=== PATIENT | female | born 1990 | race Caucasian/White ===

== ENCOUNTER 2024-04-03 12:01 | Emergency (ER) | payer MEDICAID, SELFPAY ==
[2024-04-03 12:02] VITALS: BMI 32.0
[2024-04-03 12:09] VITALS: BP 137/94; PULSE 109; RESP 16; TEMP 36.7; O2SAT 100; BMI 31.3
--- NOTE | 2024-04-03 12:18 | XR_ITS ---
Examination: Abdomen sonogram, Limited Date and time of exam: April 03, 2024 1236 hours INDICATIONS: Worsening right upper abdominal pain beginning 2 days ago Technique: Real-time frazier scale transabdominal sonographic images of the upper abdomen obtained. Findings: Gallbladder sludge, stone with shadowing at the gallbladder neck Gallbladder wall 0.3 cm no edema Common bile duct 0.5 cm Pancreatic head 2.3 cm Liver 13.5 cm no focal liver lesions Normal hepatopedal portal venous flow Patent IVC IMPRESSION: Cholelithiasis, negative for cholecystitis
[2024-04-03 12:34] LABS: Basophils # (Auto) 0.1 Thou/mm3 (0.0-0.2); Basophils % (Auto) 0 % (0-2.5); Eosinophils # (Auto) 0.1 Thou/mm3 (0.0-0.5); Eosinophils % (Auto) 1 % (0-10); Hematocrit 35.2 % (36.0-46.0); Hemoglobin 12.1 g/dL (12.0-16.0); Immature Granulocytes % (Auto) 0 % (0-0); Immature Granulocytes Auto 0.03 Thou/mm3 (0.00-0.00); Lymphocytes % (Auto) 18 % (10-50); Mean Corpuscular HGB Conc 34.4 g/dl (31.0-37.0); Mean Corpuscular Hemoglobin 27.4 pg (25.0-35.0); Mean Corpuscular Volume 80 fL (80-100); Monocytes # (Auto) 0.4 Thou/mm3 (0.0-0.8); Monocytes % (Auto) 4 % (0-12); Neutrophils # (Auto) 8.9 Thou/mm3 (1.8-7.7); Neutrophils % (Auto) 77 % (37-80); Nucleated Red Blood Cell % 0 /100 WBC (0); Platelet Count 309 Thou/mm3 (140-440); RDW Standard Deviation 41.1 fL (36.4-46.3); Red Blood Count 4.41 Miln/mm3 (4.00-5.20); White Blood Count 11.6 Thou/mm3 (3.6-11.0)
[2024-04-03 12:43] LABS: Collection Type, Urine Clean Catch
[2024-04-03 12:56] LABS: Bilirubin,Urine Negative (Negative); Blood,Urine 1+ (Negative); Clarity,Urine Clear (Clear/Hazy); Color,Urine Lt-Yellow (Lt Yel-Yel); Culture Indicated,Urine Not Indicated; Glucose, Urine Negative (Negative); Ketones,Urine 4+ (Negative); Leukocyte Esterase,Urine Negative (Negative); Nitrite,Urine Negative (Negative); PH,Urine 6.5 (5.0-7.0); Protein,Urine Trace (Neg - Trace); RBC,Urine 3 /hpf (0-3); Specific Gravity,Urine 1.021 (1.001-1.035); Squamous Epithelial Cell,Urine 2 /hpf (0-5); Urobilinogen,Urine Negative mg/dL (0.0-1.0); WBC,Urine 1 /hpf (0-5)
[2024-04-03 12:57] LABS: Alanine Aminotransferase 18 U/L (10-49); Albumin, Serum 4.9 gm/dL (3.5-5.0); Albumin/Globulin Ratio 1.5 (1.2-2.2); Alkaline Phosphatase 99 U/L (46-116); Anion Gap 8 (7-16); Aspartate Amino Transferase 11 U/L (0-34); BUN/Creatinine Ratio 8 Ratio (12-20); Bilirubin,Total 0.9 mg/dL (0.3-1.2); Blood Urea Nitrogen 5 mg/dL (9-23); Calcium 9.4 mg/dL (8.3-10.6); Calcium (Corrected) 9.4 mg/dL (8.5-10.1); Carbon Dioxide 22.6 mMol/L (20.0-31.0); Chloride 103 mMol/L (98-107); Creatinine (Component) 0.6 mg/dL (0.6-1.3); Estimated Creatinine Clearance 129.9 mL/min (>60); Globulin 3.2 gm/dL (2.3-3.5); Glucose 93 mg/dL (74-106); Lipase 36 U/L (12-53); Osmolality,Calculated 265 (275-295); Potassium 3.3 mMol/L (3.4-5.1); Sodium 134 mMol/L (136-145); Total Protein 8.1 gm/dL (5.7-8.2); eGFR > 60 See Note
[2024-04-03 12:59] LABS: HCG,Qualitative Serum Positive
--- NOTE | 2024-04-03 13:20 | PD.EDRME ---
Rapid Medical Screening Exam RME Arrival date/time: 04/03/24 12:01 33-year-old female presents emergency department complaints of upper abdominal pain Chief Complaint: Abdominal Pain Time Seen by Provider: 04/03/24 12:05 Vital signs: Vital Signs Temperature 98.0 F 04/03/24 12:09 Pulse Rate 109 H 04/03/24 12:09 Respiratory Rate 16 04/03/24 12:09 Blood Pressure 137/94 H 04/03/24 12:09 Pulse Oximetry (%) 100 04/03/24 12:09 Oxygen Delivery Method Room Air 04/03/24 12:09
--- NOTE | 2024-04-03 13:21 | XR_ITS ---
Examination: Complete OB ultrasound, less than 14 weeks, transabdominal Date and time of exam: April 03, 2024 1510 hours INDICATIONS: Positive test today with right upper abdominal pain symptoms Technique: Obstetrical ultrasound images less than 14 weeks performed via transabdominal imaging Findings: Uterus 7.7 x 3.2 x 5.0 cm No uterine mass or intrauterine gestation Endometrial stripe 0.3 cm Right ovary 3.5 x 2.0 x 2.9 cm arterial flow Left ovary obscured by bowel gas IMPRESSION: No uterine mass or intrauterine gestation
[2024-04-03 14:52] LABS: Beta HCG,Quantitative 2306 mIU/mL (<5.0)
[2024-04-03 15:31] VITALS: BP 146/94; PULSE 84; RESP 16; TEMP 36.6; O2SAT 100
--- NOTE | 2024-04-03 15:41 | PD.EDABDPN ---
ED Abdominal Pain RME/HPI General Chief Complaint: Abdominal Pain Stated complaint: RIGHT UPPER QUADRANT PAIN X1WK Time seen by provider: 04/03/24 12:05 Arrival date/time: 04/03/24 12:01 33-year-old female presents to the emergency department complaints of right upper abdominal pain ongoing for a week patient reports previous episodes of the same. Patient also reports that she is late on her period 4 days. Patient reports no fever nausea vomiting no headache dizziness weakness Limitations: no limitations RME / HPI RME / HPI narrative: 04/03/24 12:01 33-year-old female presents emergency department complaints of upper abdominal pain Related Data Previous Rx's ?Medication ?Instructions ?Recorded sulfamethoxazole 800 See Rx Instructions .Route 06/13/18 mg-trimethoprim 160 mg tablet .COMPLEX #20 tabs (Bactrim DS) Allergies Allergy/AdvReac Type Severity Reaction Status Date / Time No Known Allergies Allergy Verified 04/03/24 12:05 Review of Systems Review of Systems Systems Reviewed: All systems reviewed, normal except as documented Constitutional Constitutional: Reports system reviewed and no additional complaints, except as documented, Denies fever(s) and Denies headache(s) Eyes Eyes: Reports system reviewed and no additional complaints, except as documented and Denies blurry vision ENT Ears, Nose, Mouth, and Throat: Reports system reviewed and no additional complaints, except as documented, Denies headache(s), Denies nasal congestion and Denies nasal discharge Cardiovascular Cardiovascular: Reports system reviewed and no additional complaints, except as documented, Denies chest pain and Denies dyspnea Respiratory Respiratory: Reports system reviewed and no additional complaints, except as documented, Denies chest congestion, Denies cough and Denies dyspnea Gastrointestinal Gastrointestinal: Reports system reviewed and no additional complaints, except as documented, Reports abdominal pain, Denies loose stools, Denies nausea and Denies vomiting Integumentary/Breasts Skin/Breast: Reports system reviewed and no additional complaints, except as documented and Denies rash Neurologic Neurologic: Reports system reviewed and no additional complaints, except as documented, Reports as per HPI and Denies headache(s) Past Medical History Past Medical History CARDIAC: Negative Congestive Heart Failure RESPIRATORY: Negative Chronic Obstructive Pulmonary Disease (COPD) GENITOURINARY: Negative Renal Disease ENDOCRINE: Negative Diabetes Mellitus Type 1 or Diabetes Mellitus Type 2 Social History SMOKING STATUS: Never smoker ED Exam General Limitations: Present no limitations General appearance: Present alert and in no apparent distress Head Head exam: Present atraumatic Eye Eye exam: Present normal appearance, PERRL and EOMI; Absent conjunctival injection ENT ENT exam: Present normal exam, normal oropharynx and mucous membranes moist Neck Neck exam: Present normal inspection, full ROM and trachea midline Chest Chest inspection: Present normal inspection and symmetric chest wall rise Respiratory Respiratory exam: Present normal lung sounds bilaterally; Absent respiratory distress Cardiovascular Cardiovascular exam: Present regular rate, normal rhythm and normal heart sounds Abdominal Exam Abdominal exam: Present soft and normal bowel sounds; Absent distention, tenderness, guarding, rebound, rigidity, Parmar's sign, Rovsing's sign or tenderness at McBurney's Point Abdominal tenderness: Present RUQ; Absent RLQ Extremities Exam Extremities exam: Present normal inspection and full ROM Back Exam Back exam: Present normal inspection and full ROM Neurological Exam Neurological exam: Present alert, oriented X3 and CN II-XII intact Psychiatric Psychiatric exam: Present normal affect and normal mood Skin Skin exam: Present warm, dry, intact and normal color Course Quality Measures none Orders Category Date Time Status US OB <= 14 weeks fetus Stat Exams 04/03/24 13:21 Completed US gall bladder Stat Exams 04/03/24 12:18 Completed Beta HCG,Quantitative Stat Lab 04/03/24 12:24 Completed CBC Stat Lab 04/03/24 12:24 Completed Comprehensive Metabolic Panel Stat Lab 04/03/24 12:24 Completed HCG,Qualitative Serum Stat Lab 04/03/24 12:24 Completed Lipase Stat Lab 04/03/24 12:24 Completed UA, C/S IF [Urinalysis, C/S if Indicated] Stat Lab 04/03/24 12:29 Completed Vital Signs Vital signs: Vital Signs Temperature 98.0 F 04/03/24 12:09 Pulse Rate 109 H 04/03/24 12:09 Respiratory Rate 16 04/03/24 12:09 Blood Pressure 137/94 H 04/03/24 12:09 Pulse Oximetry (%) 100 04/03/24 12:09 Oxygen Delivery Method Room Air 04/03/24 12:09 O2 saturation 100% room air within normal limits Abdominal Pain MDM MDM Narrative MDM Narrative:: 33-year-old female presents to the emergency department complaints of right upper abdominal pain ongoing for a week patient reports previous episodes of the same. Patient also reports that she is late on her period 4 days. Patient reports no fever nausea vomiting no headache dizziness weakness On exam patient does not appear ill or toxic in no acute distress Lab work obtained ultrasound obtained liver enzymes within normal limits Patient did test positive therefore hCG quantitative level was obtained and pelvic ultrasound obtained Patient has no acute emergent findings at this time patient be discharged home patient struck to follow-up with [facility]ST[facility] TECHNICIAN for further evaluation for and she needs to follow-up with the specialist for her cholelithiasis Patient data External records reviewed:: [facility] previous records Clinical information provided by:: patient Social determinants that could affect healthcare access:: none Patient has the following chronic illnesses:: None How is presenting disease/condition affected by chronic disease/condition?: no chronic disease Evaluation data The following diagnostics were reviewed and interpreted by me:: lab results and radiology exam(s) Lab and/or radiology exams considered but not ordered:: Labs and radiology obtained Interpretation Summary: Reviewed by me Medications / Prescriptions Medications or Prescriptions considered but not ordered:: Given no meds Medication administrations:: Given no meds Consultations Consultation(s) initiated? (list below): No Diagnosis Differential diagnosis abdominal pain: abdominal pain, acute appendicitis, calculus of kidney, gastroenteritis and pancreatitis Most likely diagnosis given after review of the tests above:: Cholelithiasis, incidental Admission Indicated Admission indicated?: not indicated Admission Request Was there a request for admission?: No Disposition Plan Disposition Plan: Discharge Discharge Attestation Discharge Attestation: The patient and all family members were given an opportunity to ask questions and understood the discharge instructions. Discharge instructions specifically effects, indications for sooner follow up or return to the emergency department, and the expected course of current diagnosis. Patient condition: Stable Discharge Plan Plan Patient Disposition: HOME (Self Care) Disposition Comment: Stable Prescriptions/Referrals Prescriptions/Med Rec: No Action sulfamethoxazole-trimethoprim [Bactrim DS] 800-160 mg tablet See Rx Instructions .ROUTE .COMPLEX Qty: 20 0RF Rx Instructions: 1 tablet p.o. twice daily for 10 days Referrals: No Primary/Family,Physician [Primary Care Provider] - 04/04/24 Problem List Clinical Impression: Cholelithiasis, Early stage of Patient/Caregiver Discharge Instructions Additional Instructions: Please follow-up with [facility] TECHNICIAN as soon as possible for worsening symptoms return immediately You are found to have cholelithiasis it is important that you follow-up with primary care doctor and or get referral to general surgeon Print Language: Japanese Stand Alone Forms: Eunice Award Info., Patient Portal Info Letter PA/OFFSET LABEL REWINDER Supervising Physician PA/OFFSET LABEL REWINDER Supervising Physician: Dr Alvarado
== END 2024-04-03 15:49 | disposition home or self-care (01) ==
PROVIDERS: Nurse Practitioner Primary Care; Emergency Provider Emergency Medicine
DX: O99.619 Diseases of the digestive system complicating pregnancy, unspecified trimester (principal); K80.20 Calculus of gallbladder without cholecystitis without obstruction
CPT/HCPCS: 36415; 76705; 76801; 80053; 81001; 83690; 84702; 84703; 85025; 99284